=== PATIENT | female | born 1935 | race Caucasian/White ===

== ENCOUNTER 2019-10-08 12:05 | Day surgery (SDC) | payer MEDICARE ==
[~2019-10-08] VITALS: Ht 182.9 cm; Wt 65.0 kg
[2019-10-08 12:35] LABS: BASOPHILS 0.3 % (0-2); EOSINOPHILS 2.3 % (0-7); HEMATOCRIT 34.8 % (36.0-48.0); HEMOGLOBIN 11.5 g/dL (12-16); LYMPHOCYTES 39.3 % (15-50); MCH 30.5 pg (26.0-34.0); MCV 92.3 fL (80.0-100.0); MEAN PLATELET VOLUME 9.2 fL (7.4-10.4); MONOCYTES 9.6 % (2-11); NEUTROPHILS 48.5 % (40-80); PLATELET COUNT 239 10x3/uL (130-400); RBC 3.77 10x6/uL (4.00-5.40); RDW 12.3 % (11.5-14.5); WBC 5.8 10x3/uL (4.8-10.8)
[2019-10-08] MEDS ORDERED: SYNTHROID88 MCG PO (13:10)
[2019-10-08] MEDS ORDERED: LOTENSIN HCT 21 EACH PO (13:11)
[2019-10-08 13:12] VITALS: Ht 182.9 cm; Wt 65.0 kg
[2019-10-08 13:14] LABS: ANION GAP 11.3 mmol/L (8-16); CALCIUM 9.7 mg/dL (8.5-10.1); CARBON DIOXIDE 29.1 mmol/L (21.0-32.0); CREATININE - SERUM 1.5 mg/dL (0.6-1.3); POTASSIUM - SERUM 4.4 mmol/L (3.5-5.1)
--- NOTE | 2019-10-10 11:26 | OP ---
PATIENT NAME: ONEAL MILES MEDICAL RECORD: [id number] :31 LOCATION:[facility] ADMISSION DATE: SURGEON: KAUSHIK SOMMERS DO DATE OF OPERATION: 10/08/2019 PROCEDURE: EGD with balloon dilation, biopsies, and polyp removal. SCOPE: Olympus video gastroscope. MEDICATIONS: Propofol 200 mg IV per anesthesia. ESTIMATED BLOOD LOSS: Minimal. COMPLICATIONS: None. FINDINGS: Informed consent was given. The patient was made comfortable with the above medication. After reaching an adequate level of sedation by slow IV push, the patient was placed on her left side. The endoscope was advanced under direct visualization through the mouth to the second portion of duodenum with ease. The upper and middle esophagus appeared normal. In the distal third of the esophagus, there was a polyp that had a papillomatous appearance. It was removed using a combination of cold snare and cold forceps. Just distal to this, at the GE junction, there was an esophageal Schatzki ring that measured approximately 12-14 mm in diameter. It was dilated using a CRE dilating balloon up to 18 mm maximum diameter successfully. A single cold forceps biopsy was taken from the site. Just distal to this, there was evidence of LA class A reflux-induced esophagitis. The endoscope was advanced beyond the GE junction into the stomach and retroflexed to view the cardia and fundus. There was a small sliding hiatal hernia present. The mucosa of the fundus and proximal stomach body appeared normal. In the distal stomach and antrum, there were some changes of erythema and granularity consistent with mild chronic gastritis. Cold forceps biopsies were taken from the antrum and incisura to submit for histopathology and to rule out the presence of H. pylori. The endoscope was advanced beyond the pylorus into the duodenum, which appeared normal to the second portion. Cold forceps, biopsies were taken. The endoscope was withdrawn from the patient. The patient tolerated the procedure well and there were no complications. IMPRESSION: 1. A single esophageal polyp was removed from the distal esophagus using a combination of cold snare and cold forceps. 2. Schatzki's ring was located at the GE junction. It was dilated to 18 mm maximum diameter successfully. 3. LA class A reflux-induced esophagitis. 4. Small sliding hiatal hernia. 5. Mild chronic gastritis changes in the distal stomach. PLAN AND RECOMMENDATIONS: 1. Discharge home when recovery parameters are met. 2. Follow up biopsy specimen results. 3. GERD diet and reflux precautions. 4. Recommend use of famotidine 40 mg daily for 30 days to see if this helps with dysphagia symptoms. 5. If dysphagia does not improve, I would recommend a modified barium swallow with speech therapy present. OPERATIVE REPORT [id number] ONEAL MILES 6. Follow up in GI clinic in approximately 6 weeks. TRANSINT:[id number] Voice Confirmation ID: [id number] DOCUMENT ID: [id number] KAUSHIK SOMMERS DO at 1126 CC: [id number] DICTATION DATE: 10/08/19 1409 GRAPHICS COORDINATOR: 10/08/19 2019 [facility] 10/08/19 [id number] [place] [address]
== END 2019-10-08 15:05 | disposition home or self-care (01) ==
LOC: D.OPS 12:05
PROVIDERS: Anesthesiology; ATTEND Internal Medicine Gastroenterology
DX: K21.0 Gastro-esophageal reflux disease with esophagitis (principal); K22.8 Other specified diseases of esophagus; K22.2 Esophageal obstruction; R12 Heartburn; R13.10 Dysphagia, unspecified; K52.9 Noninfective gastroenteritis and colitis, unspecified; R10.11 Right upper quadrant pain

== ENCOUNTER → 2019-11-16 09:27 | Outpatient (CLI) | payer MEDICARE ==
[2019-10-08 13:12] VITALS: BMI 19.4
[~2019-11-16 09:27] MED LIST: LOTENSIN HCT 21 EACH PO; SYNTHROID88 MCG PO
== END | disposition home or self-care (01) ==
LOC: D.RAD 09:27
PROVIDERS: ATTEND Internal Medicine Gastroenterology
DX: R13.12 Dysphagia, oropharyngeal phase (principal); R12 Heartburn; R10.11 Right upper quadrant pain